=== PATIENT | female | born 1980 | race Caucasian/White ===

== ENCOUNTER → 2023-05-17 | Outpatient (CLI) | payer OTHER ==
--- NOTE | 2023-05-17 17:33 | MM ---
Reason for Exam: Screening (asymptomatic). Patient History: Menarche at age 13. First Full-Term at age 32. Late child-bearing (after 32). Premenopausal. Risk Values: Yen 5 year model risk: 0.8%. NCI Lifetime model risk: 14.8%. Tissue Density: There are scattered fibroglandular densities. Findings: Analyzed By CAD. No significant mass, suspicious microcalcification, or other discrete abnormality is seen. Overall Assessment: Negative, BI-RAD 1 Management: Screening Mammogram of both breasts in 1 year. . Patient should continue monthly self-breast exams. A clinical breast exam by your physician is recommended on an annual basis. This exam should not preclude additional follow-up of suspicious palpable abnormalities. Note on Yen scores and lifetime risk: 1. A Yen score greater than 3% is considered moderate risk. If this is the case, consider specialist referral to assess eligibility for a risk reducing agent. 2. If overall lifetime risk for the development of breast cancer is 20% or higher, the patient may qualify for future screening with alternating mammogram and breast MRI. Electronically signed and approved by: Lobito Pineda M.D. Radiologist
== END | disposition home or self-care (01) ==
LOC: RADMAMWWP 08:37
PROVIDERS: ATTEND Family Medicine
DX: Z12.31 Encounter for screening mammogram for malignant neoplasm of breast (principal)
CPT/HCPCS: 77067

== ENCOUNTER → 2024-05-24 | Outpatient (CLI) | payer OTHER ==
--- NOTE | 2024-05-24 07:59 | US ---
EXAMINATION TYPE: US liver DATE OF EXAM: 05/24/2024 COMPARISON: NONE CLINICAL INDICATION: Female, 43 years old with history of R74.8 Elevated liver enzymes; elevated live r enzymes TECHNIQUE: Grayscale and color Doppler imaging of the right upper quadrant was performed. 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 Gallbladder: Surgically absent Evidence for sonographic Bay's sign: no CBD: wnl Right Kidney: wnl IMPRESSION: 1. No evidence for acute process. 2. Mild coarsened liver echotexture No evidence for mass. [facility], , 05/24/2024 7:56 AM
--- NOTE | 2024-05-24 09:22 | MM ---
Reason for Exam: Screening (asymptomatic). Last screening mammogram was performed 12 month(s) ago. Patient History: Menarche at age 13. First Full-Term at age 32. Late child-bearing (after 32). Premenopausal. Risk Values: Yen 5 year model risk: 0.9%. NCI Lifetime model risk: 14.7%. Prior Study Comparison: 05/17/2023 Bilateral MG screening mammo w CAD, [facility]. Tissue Density: The breasts are heterogeneously dense, which may obscure small masses. Findings: Analyzed By CAD. There is no suspicious group of microcalcifications or new suspicious mass in either breast. Overall Assessment: Negative, BI-RAD 1 Management: Screening Mammogram of both breasts in 1 year. . Patient should continue monthly self-breast exams. A clinical breast exam by your physician is recommended on an annual basis. This exam should not preclude additional follow-up of suspicious palpable abnormalities. Note on Yen scores and lifetime risk: 1. A Yen score greater than 3% is considered moderate risk. If this is the case, consider specialist referral to assess eligibility for a risk reducing agent. 2. If overall lifetime risk for the development of breast cancer is 20% or higher, the patient may qualify for future screening with alternating mammogram and breast MRI. [facility], , 05/24/2024 9:19 AM. Electronically signed and approved by: Gabriel Elder M.D.
== END | disposition home or self-care (01) ==
LOC: EEVIPCON 07:00 → RADUSWWP 07:24
PROVIDERS: ATTEND Family Medicine
DX: Z12.31 Encounter for screening mammogram for malignant neoplasm of breast (principal); R74.8 Abnormal levels of other serum enzymes; R92.333 Mammographic heterogeneous density, bilateral breasts
CPT/HCPCS: 76705; 77067